=== PATIENT | male | born 1950 | race Caucasian/White ===

== ENCOUNTER 2019-05-25 00:28 | Inpatient (IN) | payer MEDICARE, MEDICAID ==
[~2019-05-25] VITALS: Ht 165.1 cm; Wt 78.0 kg
[~2019-05-25 00:28] MED LIST: ACET-2853 PO; ATOR40TA70 PO; DEXA4TAB PO; DIPH25CA83 PO; ELEQUIS PO; EPIN0.3A3 IM; GABA-531 PO; HYDR25TA PO
[2019-05-25] MEDS ORDERED: SODIUM CHLORIDE 0.9% 1000ML BAG (SEPSIS BOLUS) IV ONE (02:00)
[2019-05-25 02:29] LABS: BASOPHILS % 0.3 % (0.0-2.0); EOSINOPHILS % 0.2 % (0.0-5.0); HEMATOCRIT. 29.1 % (42.0-52.0); HEMOGLOBIN. 10.1 g/dL (14.0-18.0); LYMPHOCYTES % 22.1 % (20.0-50.0); MEAN CORPUSCULAR HEMOGLOBIN 31.6 pg (28.0-32.0); MEAN CORPUSCULAR VOLUME 90.7 fL (80.0-94.0); MEAN PLATELET VOLUME 6.6 fl (7.4-10.4); MONOCYTES % 14.2 % (2.0-8.0); NEUTROPHILS % 63.2 % (40.0-76.0); PLATELET 336 x1000/uL (130-400); RED BLOOD CELL COUNT 3.21 mill/uL (4.7-6.1); RED CELL DISTRIBUTION WIDTH 17.1 % (11.6-14.6)
[2019-05-25 02:30] LABS: CHLORIDE 99 mEq/L (98-107)
[2019-05-25 02:31] LABS: INR 1.2; PROTHROMBIN TIME 12.2 sec (9.6-11.0)
[2019-05-25 02:34] LABS: ETHANOL BLOOD < 10 mg/dL
[2019-05-25 02:51] LABS: CLARITY URINE CLEAR (CLEAR); COLOR URINE YELLOW (YELLOW); KETONES URINE TRACE (NEGATIVE); LEUKOCYTE ESTERASE URINE TRACE (NEGATIVE); NITRITE URINE NEGATIVE (NEGATIVE); OCCULT BLOOD URINE 1+ (NEGATIVE); PH URINE 5.5 (4.5-8.0); PROTEIN URINE 2+ (NEGATIVE); SPECIFIC GRAVITY URINE 1.022 (1.005-1.030)
[2019-05-25] MEDS ORDERED: CEFTRIAXONE 1 G PREMIX 50 ML IV SCH (03:45)
[2019-05-25 04:04] LABS: *AMPHETAMINES SCREEN URINE NEGATIVE (NEGATIVE); *BARBITURATES SCREEN URINE NEGATIVE (NEGATIVE); *BENZODIAZEPINES SCREEN URINE NEGATIVE (NEGATIVE); *COCAINE SCREEN URINE NEGATIVE (NEGATIVE)
[2019-05-25 04:05] LABS: CANNABINOID URINE SCREEN NEGATIVE (NEGATIVE); METHADONE URINE SCREEN NEGATIVE (NEGATIVE); OPIATES URINE SCREEN NEGATIVE (NEGATIVE); PHENCYCLIDINE URINE SCREEN NEGATIVE (NEGATIVE)
[2019-05-25] MEDS ORDERED: AMIODARONE HCL 900 MG in DEXT 5% WATER 482 ML IV SCH ×2 (04:30→05:00)
[2019-05-25] MEDS ORDERED: AMIODARONE HCL 150 MG in DEXT 5% WATER 100 ML IV ONE (04:30)
[2019-05-25] MEDS ORDERED: CLONIDINE 0.1MG TABLET PO PRN (15:00)
[2019-05-25] MEDS ORDERED: GUAIFENESIN 200MG/10ML SUGAR FREE UDC PO PRN (15:00)
[2019-05-25] MEDS ORDERED: DIPHENHYDRAMINE 50MG/ML VIAL IV PRN (15:00)
[2019-05-25] MEDS ORDERED: ONDANSETRON HCL 4MG/2ML INJ IV PRN (15:00)
[2019-05-25] MEDS ORDERED: IPRATROPIUM/ALBUTEROL 0.5-3(2.5)MG/3ML NEB HHN PRN ×2 (15:00→20:15)
[2019-05-25] MEDS ORDERED: MAGNESIUM/ALUMINUM HYDROXIDE/SIMETHICONE 30ML UDC PO PRN (15:00)
[2019-05-25 15:12] VITALS: BP 150/94
[2019-05-25] MEDS: SODIUM CHLORIDE 0.9% 1,000 ML IV SCH ×2 (15:56→21:28)
[2019-05-25] MEDS: FAMOTIDINE 20MG/2ML VIAL IV SCH (15:56)
[2019-05-25] MEDS: ENOXAPARIN 40MG/0.4ML SYR SUBCUT SCH (15:57)
[2019-05-25] MEDS ORDERED: KCL 20MEQ/100ML PREMIX 100 ML IV SCH (16:30)
[2019-05-25] MEDS: CALCITONIN,SALMON, 3.7 ML NASAL SPRAY ONENSTRL SCH (17:18)
[2019-05-25 18:57] VITALS: BP 142/85
[2019-05-25 20:25] VITALS: BP 137/80
[2019-05-25] MEDS ORDERED: FUROSEMIDE 40MG/4ML VIAL IVP NR (20:30)
[2019-05-25] MEDS ORDERED: MAGNESIUM 1 G PREMIX 100 ML IV NR (22:00)
[2019-05-26] VITALS: BP 118/70
[2019-05-26] MEDS: IPRATROPIUM/ALBUTEROL 0.5-3(2.5)MG/3ML NEB HHN SCH ×4 (00:28→21:40)
[2019-05-26] MEDS: BUDESONIDE 0.5MG/2ML NEB HHN SCH ×3 (00:29→21:40)
[2019-05-26] MEDS: SODIUM CHLORIDE 0.9% 1,000 ML IV SCH ×2 (02:56→09:40)
[2019-05-26 04:00] VITALS: BP 109/64
[2019-05-26 07:56] LABS: HEMATOCRIT. 23.5 % (42.0-52.0); MEAN CORPUSCULAR HEMOGLOBIN 31.1 pg (28.0-32.0); MEAN CORPUSCULAR VOLUME 91.6 fL (80.0-94.0); MEAN PLATELET VOLUME 6.8 fl (7.4-10.4); PLATELET 275 x1000/uL (130-400); RED BLOOD CELL COUNT 2.57 mill/uL (4.7-6.1); RED CELL DISTRIBUTION WIDTH 16.8 % (11.6-14.6)
[2019-05-26 08:44] LABS: CHLORIDE 104 mEq/L (98-107)
[2019-05-26 08:52] LABS: PHOSPHORUS 3.4 mg/dL (2.5-4.9)
[2019-05-26] MEDS: FAMOTIDINE 20MG/2ML VIAL IV SCH (08:52)
[2019-05-26] MEDS: CALCITONIN,SALMON, 3.7 ML NASAL SPRAY ONENSTRL SCH (08:56)
[2019-05-26 12:00] VITALS: BP 147/90
[2019-05-26] MEDS ORDERED: POTASSIUM CHLORIDE INJ 40 MEQ in DEXT 5% WATER 250 ML IV NR (13:30)
[2019-05-26 14:17] LABS: PLATELET ESTIMATE NORMAL
[2019-05-26] MEDS ORDERED: PAMIDRONATE DISODIUM 60 MG in SODIUM CHLORIDE 0.9% 500 ML IV ONE (15:00)
[2019-05-26] MEDS: ENOXAPARIN 40MG/0.4ML SYR SUBCUT SCH (15:03)
[2019-05-26 16:00] VITALS: BP 138/70
[2019-05-26 20:00] VITALS: BP 156/86
[2019-05-27] VITALS: BP 139/81
[2019-05-27] MEDS: SODIUM CHLORIDE 0.9% 1,000 ML IV SCH (00:39)
[2019-05-27] MEDS: IPRATROPIUM/ALBUTEROL 0.5-3(2.5)MG/3ML NEB HHN SCH ×4 (01:14→21:02)
[2019-05-27 06:56] LABS: BASOPHILS % 0.4 % (0.0-2.0); EOSINOPHILS % 0.8 % (0.0-5.0); HEMATOCRIT. 23.2 % (42.0-52.0); HEMOGLOBIN. 7.8 g/dL (14.0-18.0); LYMPHOCYTES % 22.8 % (20.0-50.0); MEAN CORPUSCULAR HEMOGLOBIN 30.6 pg (28.0-32.0); MEAN CORPUSCULAR VOLUME 91.4 fL (80.0-94.0); MEAN PLATELET VOLUME 6.6 fl (7.4-10.4); MONOCYTES % 11.8 % (2.0-8.0); NEUTROPHILS % 64.2 % (40.0-76.0); PLATELET 243 x1000/uL (130-400); RED BLOOD CELL COUNT 2.54 mill/uL (4.7-6.1); RED CELL DISTRIBUTION WIDTH 16.7 % (11.6-14.6)
[2019-05-27 08:00] VITALS: BP 154/77
[2019-05-27 08:24] LABS: CHLORIDE 108 mEq/L (98-107)
[2019-05-27 08:38] LABS: PHOSPHORUS 2.8 mg/dL (2.5-4.9)
[2019-05-27] MEDS: BUDESONIDE 0.5MG/2ML NEB HHN SCH ×2 (08:59→21:00)
[2019-05-27] MEDS ORDERED: POTASSIUM CHLORIDE 20MEQ TABLET SR PO NR (10:00)
[2019-05-27] MEDS: FAMOTIDINE 20MG/2ML VIAL IV SCH (10:36)
[2019-05-27] MEDS: CALCITONIN,SALMON, 3.7 ML NASAL SPRAY ONENSTRL SCH (10:36)
[2019-05-27] MEDS ORDERED: POTASSIUM CHLORIDE INJ 40 MEQ in DEXT 5% WATER 250 ML IV NR (11:00)
[2019-05-27 12:00] VITALS: BP 126/94
[2019-05-27 16:00] VITALS: BP 138/77
[2019-05-27] MEDS ORDERED: MAGNESIUM 2 G PREMIX 50 ML IV NR (16:30)
[2019-05-27] MEDS: ENOXAPARIN 40MG/0.4ML SYR SUBCUT SCH (18:08)
[2019-05-27 20:00] VITALS: BP 136/82
[2019-05-28] VITALS (10 sets, daily range): BP systolic 112–157; BP diastolic 60–84
[2019-05-28] MEDS: IPRATROPIUM/ALBUTEROL 0.5-3(2.5)MG/3ML NEB HHN SCH ×4 (01:26→21:49)
[2019-05-28] MEDS: BUDESONIDE 0.5MG/2ML NEB HHN SCH ×3 (01:26→21:49)
[2019-05-28] MEDS: SODIUM CHLORIDE 0.9% 1,000 ML IV SCH ×3 (02:16→23:12)
[2019-05-28] MEDS: FAMOTIDINE 20MG/2ML VIAL IV SCH (08:49)
[2019-05-28] MEDS: CALCITONIN,SALMON, 3.7 ML NASAL SPRAY ONENSTRL SCH (08:49)
[2019-05-28 09:03] LABS: CHLORIDE 112 mEq/L (98-107)
[2019-05-28 09:10] LABS: BASOPHILS % 0.5 % (0.0-2.0); EOSINOPHILS % 0.4 % (0.0-5.0); LYMPHOCYTES % 20.9 % (20.0-50.0); MEAN CORPUSCULAR HEMOGLOBIN 30.6 pg (28.0-32.0); MEAN CORPUSCULAR VOLUME 92.2 fL (80.0-94.0); MEAN PLATELET VOLUME 6.2 fl (7.4-10.4); MONOCYTES % 10.3 % (2.0-8.0); NEUTROPHILS % 67.9 % (40.0-76.0); PLATELET 197 x1000/uL (130-400); RED BLOOD CELL COUNT 2.23 mill/uL (4.7-6.1); RED CELL DISTRIBUTION WIDTH 16.7 % (11.6-14.6)
[2019-05-28 09:11] LABS: PHOSPHORUS 1.7 mg/dL (2.5-4.9)
[2019-05-28 09:24] LABS: HEMATOCRIT. 20.5 % (42.0-52.0); HEMOGLOBIN. 6.8 g/dL (14.0-18.0)
[2019-05-28] MEDS ORDERED: MAGNESIUM 4 G PREMIX 100 ML IV SCH (11:00)
[2019-05-28] MEDS ORDERED: POTASSIUM CHLORIDE 20MEQ TABLET SR PO NR (12:00)
[2019-05-28] MEDS ORDERED: POTASSIUM PHOS,M-BASIC-D-BASIC 30 MMOL in DEXT 5% WATER 500 ML IV SCH (12:00)
[2019-05-28] MEDS ORDERED: POTASSIUM CHLORIDE INJ 40 MEQ in DEXT 5% WATER 500 ML IV SCH (12:00)
[2019-05-28] MEDS: ENOXAPARIN 40MG/0.4ML SYR SUBCUT SCH (16:00)
[2019-05-28] MEDS: ACETAMINOPHEN 325MG TABLET PO PRN (17:05)
[2019-05-29] VITALS: BP 109/51
[2019-05-29] MEDS: IPRATROPIUM/ALBUTEROL 0.5-3(2.5)MG/3ML NEB HHN SCH ×4 (01:41→21:16)
[2019-05-29 04:00] VITALS: BP 129/63
[2019-05-29] MEDS: SODIUM CHLORIDE 0.9% 1,000 ML IV SCH (06:03)
[2019-05-29 07:07] LABS: BASOPHILS % 0.2 % (0.0-2.0); EOSINOPHILS % 0.8 % (0.0-5.0); HEMATOCRIT. 25.7 % (42.0-52.0); HEMOGLOBIN. 8.8 g/dL (14.0-18.0); LYMPHOCYTES % 15.4 % (20.0-50.0); MEAN CORPUSCULAR HEMOGLOBIN 30.1 pg (28.0-32.0); MEAN CORPUSCULAR VOLUME 87.7 fL (80.0-94.0); MEAN PLATELET VOLUME 6.5 fl (7.4-10.4); MONOCYTES % 10.7 % (2.0-8.0); NEUTROPHILS % 72.9 % (40.0-76.0); PLATELET 206 x1000/uL (130-400); RED BLOOD CELL COUNT 2.93 mill/uL (4.7-6.1); RED CELL DISTRIBUTION WIDTH 17.5 % (11.6-14.6)
[2019-05-29 07:20] LABS: CHLORIDE 104 mEq/L (98-107)
[2019-05-29 07:39] LABS: PHOSPHORUS 2.8 mg/dL (2.5-4.9)
[2019-05-29 08:00] VITALS: BP 145/80
[2019-05-29] MEDS: FAMOTIDINE 20MG/2ML VIAL IV SCH (08:10)
[2019-05-29] MEDS: CALCITONIN,SALMON, 3.7 ML NASAL SPRAY ONENSTRL SCH (08:10)
[2019-05-29 12:00] VITALS: BP 128/79
[2019-05-29 16:00] VITALS: BP 124/78
[2019-05-29] MEDS: ENOXAPARIN 40MG/0.4ML SYR SUBCUT SCH (17:12)
[2019-05-29 20:00] VITALS: BP 107/60
[2019-05-30] VITALS: BP 109/70
[2019-05-30] MEDS: IPRATROPIUM/ALBUTEROL 0.5-3(2.5)MG/3ML NEB HHN SCH ×4 (02:09→21:05)
[2019-05-30 04:00] VITALS: BP 132/76
[2019-05-30] MEDS: CALCITONIN,SALMON, 3.7 ML NASAL SPRAY ONENSTRL SCH (07:45)
[2019-05-30 07:58] LABS: BASOPHILS % 0.4 % (0.0-2.0); EOSINOPHILS % 0.8 % (0.0-5.0); HEMATOCRIT. 23.9 % (42.0-52.0); HEMOGLOBIN. 8.3 g/dL (14.0-18.0); LYMPHOCYTES % 22.3 % (20.0-50.0); MEAN CORPUSCULAR HEMOGLOBIN 30.2 pg (28.0-32.0); MEAN CORPUSCULAR VOLUME 87.2 fL (80.0-94.0); MEAN PLATELET VOLUME 6.5 fl (7.4-10.4); MONOCYTES % 10.8 % (2.0-8.0); NEUTROPHILS % 65.7 % (40.0-76.0); PLATELET 197 x1000/uL (130-400); RED BLOOD CELL COUNT 2.75 mill/uL (4.7-6.1); RED CELL DISTRIBUTION WIDTH 17.7 % (11.6-14.6)
[2019-05-30 08:17] LABS: CHLORIDE 103 mEq/L (98-107)
[2019-05-30 08:28] LABS: PHOSPHORUS 2.6 mg/dL (2.5-4.9)
[2019-05-30] MEDS ORDERED: POTASSIUM CHLORIDE 20MEQ/PACKET PO NR (11:30)
[2019-05-30] MEDS ORDERED: MAGNESIUM 2 G PREMIX 50 ML IV NR (11:30)
[2019-05-30 12:00] VITALS: BP 122/70
[2019-05-30] MEDS ORDERED: GUAIFENESIN 200MG/10ML SUGAR FREE UDC PO PRN (12:45)
[2019-05-30] MEDS ORDERED: FUROSEMIDE 20MG/2ML VIAL IVP NR (15:30)
[2019-05-30 16:00] VITALS: BP 119/71
[2019-05-30] MEDS: ENOXAPARIN 40MG/0.4ML SYR SUBCUT SCH (16:20)
[2019-05-30] MEDS ORDERED: IPRATROPIUM/ALBUTEROL 0.5-3(2.5)MG/3ML NEB HHN SCH (18:00)
[2019-05-30 20:00] VITALS: BP 133/80
[2019-05-31] VITALS: BP 135/79
[2019-05-31] MEDS: IPRATROPIUM/ALBUTEROL 0.5-3(2.5)MG/3ML NEB HHN SCH ×4 (00:36→21:05)
[2019-05-31 04:00] VITALS: BP 122/72
[2019-05-31 08:00] VITALS: BP 135/80
[2019-05-31] MEDS: CALCITONIN,SALMON, 3.7 ML NASAL SPRAY ONENSTRL SCH (09:59)
[2019-05-31 12:00] VITALS: BP 129/78
[2019-05-31] MEDS ORDERED: POTASSIUM CHLORIDE 20MEQ/PACKET PO SCH (12:45)
[2019-05-31] MEDS ORDERED: MAGNESIUM 2 G PREMIX 50 ML IV SCH (13:30)
[2019-05-31] MEDS: ENOXAPARIN 40MG/0.4ML SYR SUBCUT SCH (15:21)
[2019-05-31 16:00] VITALS: BP 121/77
[2019-05-31 20:00] VITALS: BP 124/76
[2019-05-31] MEDS: ACETAMINOPHEN 325MG TABLET PO PRN (23:40)
[2019-06-01] VITALS: BP 141/72
[2019-06-01 04:00] VITALS: BP 119/77
[2019-06-01] MEDS: IPRATROPIUM/ALBUTEROL 0.5-3(2.5)MG/3ML NEB HHN SCH ×3 (04:09→14:17)
[2019-06-01 07:02] LABS: BASOPHILS % 0.5 % (0.0-2.0); EOSINOPHILS % 0.9 % (0.0-5.0); HEMATOCRIT. 24.8 % (42.0-52.0); HEMOGLOBIN. 8.4 g/dL (14.0-18.0); LYMPHOCYTES % 28.5 % (20.0-50.0); MEAN CORPUSCULAR HEMOGLOBIN 29.9 pg (28.0-32.0); MEAN CORPUSCULAR VOLUME 87.9 fL (80.0-94.0); MEAN PLATELET VOLUME 6.6 fl (7.4-10.4); MONOCYTES % 12.8 % (2.0-8.0); NEUTROPHILS % 57.3 % (40.0-76.0); PLATELET 227 x1000/uL (130-400); RED BLOOD CELL COUNT 2.83 mill/uL (4.7-6.1); RED CELL DISTRIBUTION WIDTH 17.3 % (11.6-14.6)
[2019-06-01 07:43] LABS: CHLORIDE 103 mEq/L (98-107)
[2019-06-01 07:56] LABS: PHOSPHORUS 2.7 mg/dL (2.5-4.9)
[2019-06-01 08:00] VITALS: BP 138/79
[2019-06-01] MEDS: CALCITONIN,SALMON, 3.7 ML NASAL SPRAY ONENSTRL SCH (09:39)
[2019-06-01 12:00] VITALS: BP 129/83
[2019-06-01 14:39] LABS: CLARITY URINE CLEAR (CLEAR); COLOR URINE YELLOW (YELLOW); KETONES URINE NEGATIVE (NEGATIVE); LEUKOCYTE ESTERASE URINE NEGATIVE (NEGATIVE); NITRITE URINE NEGATIVE (NEGATIVE); OCCULT BLOOD URINE TRACE (NEGATIVE); PH URINE 7.5 (4.5-8.0); PROTEIN URINE 1+ (NEGATIVE); SPECIFIC GRAVITY URINE 1.011 (1.005-1.030); UROBILINOGEN URINE 0.2 E.U./dL (0.2-1.0)
[2019-06-01 16:00] VITALS: BP 125/74
[2019-06-01] MEDS: ENOXAPARIN 40MG/0.4ML SYR SUBCUT SCH (16:02)
[2019-06-01 20:00] VITALS: BP 140/76
[2019-06-01] MEDS: ACETAMINOPHEN 325MG TABLET PO PRN (20:36)
[2019-06-02] VITALS: BP 131/69
[2019-06-02 04:00] VITALS: BP 136/82
[2019-06-02 07:00] LABS: BASOPHILS % 0.6 % (0.0-2.0); EOSINOPHILS % 0.9 % (0.0-5.0); HEMATOCRIT. 25.1 % (42.0-52.0); HEMOGLOBIN. 8.5 g/dL (14.0-18.0); LYMPHOCYTES % 22.5 % (20.0-50.0); MEAN CORPUSCULAR HEMOGLOBIN 30.1 pg (28.0-32.0); MEAN CORPUSCULAR VOLUME 88.9 fL (80.0-94.0); MEAN PLATELET VOLUME 6.6 fl (7.4-10.4); MONOCYTES % 10.6 % (2.0-8.0); NEUTROPHILS % 65.4 % (40.0-76.0); PLATELET 235 x1000/uL (130-400); RED BLOOD CELL COUNT 2.82 mill/uL (4.7-6.1); RED CELL DISTRIBUTION WIDTH 17.4 % (11.6-14.6)
[2019-06-02 07:22] LABS: CHLORIDE 103 mEq/L (98-107)
[2019-06-02 07:36] LABS: PHOSPHORUS 2.3 mg/dL (2.5-4.9)
[2019-06-02 08:00] VITALS: BP 130/80
[2019-06-02] MEDS: CALCITONIN,SALMON, 3.7 ML NASAL SPRAY ONENSTRL SCH (09:05)
[2019-06-02 12:00] VITALS: BP 127/79
[2019-06-02] MEDS ORDERED: SODIUM PHOS,M-BASIC-D-BASIC 15 MM in DEXT 5% WATER 245 ML IV NR (15:30)
[2019-06-02 16:00] VITALS: BP 121/70
[2019-06-02] MEDS: IBUPROFEN 400MG TABLET PO PRN (18:17)
[2019-06-02 20:00] VITALS: BP 118/75
[2019-06-03] VITALS (7 sets, daily range): BP systolic 103–134; BP diastolic 59–83
[2019-06-03] MEDS: IPRATROPIUM/ALBUTEROL 0.5-3(2.5)MG/3ML NEB HHN SCH ×3 (00:53→20:28)
[2019-06-03] MEDS: IBUPROFEN 400MG TABLET PO PRN (04:33)
[2019-06-03 07:25] LABS: CHLORIDE 102 mEq/L (98-107)
[2019-06-03 07:38] LABS: PHOSPHORUS 2.5 mg/dL (2.5-4.9)
[2019-06-03] MEDS: CALCITONIN,SALMON, 3.7 ML NASAL SPRAY ONENSTRL SCH (09:00)
[2019-06-03 09:36] LABS: BASOPHILS % 0.4 % (0.0-2.0); EOSINOPHILS % 0.2 % (0.0-5.0); HEMATOCRIT. 27.2 % (42.0-52.0); HEMOGLOBIN. 9.1 g/dL (14.0-18.0); LYMPHOCYTES % 20.1 % (20.0-50.0); MEAN CORPUSCULAR VOLUME 89.8 fL (80.0-94.0); MONOCYTES % 12.2 % (2.0-8.0); NEUTROPHILS % 67.1 % (40.0-76.0); PLATELET 206 x1000/uL (130-400); RED BLOOD CELL COUNT 3.03 mill/uL (4.7-6.1); RED CELL DISTRIBUTION WIDTH 17.4 % (11.6-14.6)
[2019-06-03] MEDS: ACETAMINOPHEN 325MG TABLET PO PRN (12:02)
[2019-06-03] MEDS ORDERED: CEFTRIAXONE 1 G PREMIX 50 ML IV SCH (14:30)
[2019-06-03] MEDS: SODIUM CHLORIDE 0.9% 1,000 ML IV SCH (14:41)
[2019-06-03] MEDS ORDERED: CEFTRIAXONE 1,000 MG in DEXTROSE 5% WATER 50 ML IV SCH (17:00)
[2019-06-04] VITALS: BP 130/79
[2019-06-04] MEDS: IPRATROPIUM/ALBUTEROL 0.5-3(2.5)MG/3ML NEB HHN SCH ×4 (01:53→20:05)
[2019-06-04 04:00] VITALS: BP 111/73
[2019-06-04] MEDS: SODIUM CHLORIDE 0.9% 1,000 ML IV SCH (05:52)
[2019-06-04 07:13] LABS: HEMATOCRIT. 23.6 % (42.0-52.0); HEMOGLOBIN. 8.1 g/dL (14.0-18.0); MEAN CORPUSCULAR HEMOGLOBIN 30.3 pg (28.0-32.0); MEAN PLATELET VOLUME 6.9 fl (7.4-10.4); PLATELET 230 x1000/uL (130-400); RED BLOOD CELL COUNT 2.68 mill/uL (4.7-6.1); RED CELL DISTRIBUTION WIDTH 17.2 % (11.6-14.6)
[2019-06-04 08:00] VITALS: BP 126/78
[2019-06-04 08:37] LABS: CHLORIDE 104 mEq/L (98-107)
[2019-06-04 08:42] LABS: PHOSPHORUS 1.8 mg/dL (2.5-4.9)
[2019-06-04 08:46] LABS: CREATINE KINASE 32 IU/L (39-308)
[2019-06-04] MEDS: CALCITONIN,SALMON, 3.7 ML NASAL SPRAY ONENSTRL SCH (09:00)
[2019-06-04] MEDS ORDERED: IOHEXOL-300 100 ML BOTTLE ONE (11:18)
[2019-06-04 12:00] VITALS: BP 123/71
[2019-06-04] MEDS ORDERED: POTASSIUM CHLORIDE 20MEQ/PACKET PO SCH (12:30)
[2019-06-04] MEDS ORDERED: MAGNESIUM 2 G PREMIX 50 ML IV SCH (13:00)
[2019-06-04] MEDS ORDERED: POTASSIUM PHOS,M-BASIC-D-BASIC 30 MMOL in DEXT 5% WATER 500 ML IV SCH (13:00)
[2019-06-04] MEDS: CLOTRIMAZOLE 10MG TROCHE MM SCH ×3 (13:54→21:51)
[2019-06-04] MEDS: AMOXICILLIN 500 MG CAPSULE PO SCH ×2 (13:54→21:51)
[2019-06-04 14:14] VITALS: BP_SYST 123; BP_SYST 132; BP_DIAS 71; BP_DIAS 72
[2019-06-04] MEDS: ACETAMINOPHEN 325MG TABLET PO PRN (14:45)
[2019-06-04] MEDS: METRONIDAZOLE 500MG TABLET PO SCH ×2 (15:20→21:51)
[2019-06-04 16:39] VITALS: BP 109/69
[2019-06-04 16:54] LABS: PLATELET ESTIMATE NORMAL
[2019-06-05 00:04] VITALS: BP 118/73
== END 2019-06-05 00:30 | DRG 70 ==
LOC: ER 00:28 → 8WST 04:18 → EDBEDREQSVC 04:21 → EDBEDREQ 04:21 → EDBEDREQTM 04:21 → ENRESERV 12:45 → EDBEDREQ 13:40
PROVIDERS: ADMIT Internal Medicine; ATTEND Internal Medicine
PROC: 5A09357 Assistance with Respiratory Ventilation, Less than 24 Consecutive Hours, Continuous Positive Airway Pressure (ICD-10-PCS; 2019-05-25)
PROC: 30233N1 Transfusion of Nonautologous Red Blood Cells into Peripheral Vein, Percutaneous Approach (ICD-10-PCS; principal; 2019-05-28)
DX: G93.41 Metabolic encephalopathy (principal); E43 Unspecified severe protein-calorie malnutrition; N17.9 Acute kidney failure, unspecified; N39.0 Urinary tract infection, site not specified; C90.00 Multiple myeloma not having achieved remission; J84.9 Interstitial pulmonary disease, unspecified; E87.1 Hypo-osmolality and hyponatremia; B37.0 Candidal stomatitis; E83.52 Hypercalcemia; E86.0 Dehydration; D64.9 Anemia, unspecified; I10 Essential (primary) hypertension; I71.9 Aortic aneurysm of unspecified site, without rupture; J44.9 Chronic obstructive pulmonary disease, unspecified; E87.6 Hypokalemia; M43.23 Fusion of spine, cervicothoracic region; F41.9 Anxiety disorder, unspecified; E87.5 Hyperkalemia; E78.5 Hyperlipidemia, unspecified; I48.91 Unspecified atrial fibrillation; M19.90 Unspecified osteoarthritis, unspecified site; B95.2 Enterococcus as the cause of diseases classified elsewhere; E83.42 Hypomagnesemia; E83.39 Other disorders of phosphorus metabolism; Z98.1 Arthrodesis status; Z82.49 Family history of ischemic heart disease and other diseases of the circulatory system; Z91.19 Patient's noncompliance with other medical treatment and regimen; Z68.28 Body mass index [BMI] 28.0-28.9, adult; Z88.8 Allergy status to other drugs, medicaments and biological substances; Z79.899 Other long term (current) drug therapy
CPT/HCPCS: 36415; 71045; 74177; 80048; 80305; 80320; 81003; 82330; 82533; 82550; 82962; 83605; 83615; 83735; 83880; 84100; 84145; 84443; 84484; 84550; 86850; 86900; 86920; 87077; 87186; 87804; 93005; 93970; 94640; 94660; 97162; 97166; 99285; J0282; J0696; J1650; J1940; J2430; J3475; J3480; J3490; J7030; J7040; J7060; J7620; J7626; P9016; Q9967; G0480

== ENCOUNTER 2019-07-12 01:31 | Inpatient (IN) | payer MEDICARE, MEDICAID ==
[~2019-07-12] VITALS: Ht 170.2 cm; Wt 64.9 kg
[2019-07-12] VITALS (55 sets, daily range): BP systolic 88–133; BP diastolic 57–79
[2019-07-12] MEDS: IPRATROPIUM/ALBUTEROL 0.5-3(2.5)MG/3ML NEB HHN SCH ×3 (01:18→20:17)
[2019-07-12] MEDS: ACETYLCYSTEINE 100MG/ML 10% VIAL 4ML INH SCH (01:18)
[2019-07-12] MEDS ORDERED: MORPHINE SULFATE 4 MG/ML CPJ (NOT FOR IM USE) IV ONE (01:45)
[2019-07-12] MEDS ORDERED: LORAZEPAM 2MG/ML CPJ IV ONE ×2 (01:45→03:45)
[2019-07-12] MEDS ORDERED: ONDANSETRON HCL 4MG/2ML INJ IV ONE (01:45)
[2019-07-12 01:58] LABS: CHLORIDE 100 mEq/L (98-107)
[2019-07-12] MEDS ORDERED: NOREPINEPHRINE 4 MG in DEXT 5% WATER 246 ML IV ONE (02:00)
[2019-07-12] MEDS ORDERED: MIDAZOLAM HCL 50 MG in DEXTROSE 5% WATER 40 ML IV ONE ×2 (02:00→02:15)
[2019-07-12] MEDS ORDERED: SODIUM CHLORIDE 0.9% 1000ML BAG (SEPSIS BOLUS) IV ONE (02:00)
[2019-07-12] MEDS ORDERED: FENTANYL CITRATE/PF 500 MCG in SODIUM CHLORIDE 0.9% 40 ML IV PRN ×2 (02:00→02:15)
[2019-07-12] MEDS ORDERED: LORAZEPAM 2MG/ML CPJ ONE (02:14)
[2019-07-12] MEDS ORDERED: NOREPINEPHRINE 4MG/250ML PMX 250 ML IV PRN (02:15)
[2019-07-12 03:38] LABS: BG FRACTION INSPIRED OXYGEN 100; BG HCO3 ACT 18.8 mmol/L (22.0-26.0); BG PCO2 27.2 mmHg (35.0-45.0); BG PH 7.457 (7.350-7.450); BG PO2 353.4 mmHg (75.0-100.0); BG SAMPLE SITE RIGHT BRACHIAL; BG TOTAL HEMOGLOBIN < 4.5 g/dL (12.0-18.0); BG VENT MODE MASK - BIPAP
[2019-07-12 03:57] LABS: BASOPHILS % 0.2 % (0.0-2.0); LYMPHOCYTES % 14.8 % (20.0-50.0); MEAN CORPUSCULAR HEMOGLOBIN 29.4 pg (28.0-32.0); MEAN CORPUSCULAR VOLUME 88.1 fL (80.0-94.0); MEAN PLATELET VOLUME 7.3 fl (7.4-10.4); PLATELET 127 x1000/uL (130-400); RED BLOOD CELL COUNT 1.24 mill/uL (4.7-6.1); RED CELL DISTRIBUTION WIDTH 18.9 % (11.6-14.6)
[2019-07-12 04:00] LABS: HEMATOCRIT. 10.9 % (42.0-52.0); HEMOGLOBIN. 3.6 g/dL (14.0-18.0)
[2019-07-12 04:00] LABS: CLARITY URINE CLOUDY (CLEAR); COLOR URINE DARK YELLOW (YELLOW); KETONES URINE TRACE (NEGATIVE); LEUKOCYTE ESTERASE URINE 1+ (NEGATIVE); NITRITE URINE NEGATIVE (NEGATIVE); OCCULT BLOOD URINE 1+ (NEGATIVE); PH URINE 5.5 (4.5-8.0); PROTEIN URINE 2+ (NEGATIVE); SPECIFIC GRAVITY URINE 1.025 (1.005-1.030)
[2019-07-12] MEDS ORDERED: VANCOMYCIN 1 G PREMIX 200 ML IV SCH (05:30)
[2019-07-12] MEDS ORDERED: PIPERACILLIN/TAZOBACTAM 3.375GM/50ML PREMIX IV ONE (05:30)
[2019-07-12] MEDS ORDERED: PIPERACILLIN/TAZ 3.375G PREMIX 50 ML IV NR (05:45)
[2019-07-12] MEDS ORDERED: IPRATROPIUM/ALBUTEROL 0.5-3(2.5)MG/3ML NEB HHN PRN (11:45)
[2019-07-12 12:19] LABS: HEMOGLOBIN 6.1 g/dL (14.0-18.0)
[2019-07-12 12:20] LABS: HEMATOCRIT 18.2 % (42.0-52.0)
[2019-07-12] MEDS ORDERED: MORPHINE SULFATE 2 MG/ML CPJ (NOT FOR IM USE) IV PRN (12:30)
[2019-07-12] MEDS ORDERED: SODIUM CHLORIDE 10% FOR INH 15ML VIAL NEB INH SCH (13:00)
[2019-07-12] MEDS: PANTOPRAZOLE SODIUM 40 MG/VIAL IV SCH (13:26)
[2019-07-12] MEDS: MEROPENEM 1,000 MG in SODIUM CHLORIDE 0.9% 100 ML IV SCH ×2 (13:26→21:10)
[2019-07-12] MEDS: NOREPINEPHRINE 4 MG in DEXT 5% WATER 246 ML IV PRN (14:33)
[2019-07-12] MEDS: VANCOMYCIN 1 G PREMIX 200 ML IV SCH (19:42)
[2019-07-12 20:30] LABS: HEMATOCRIT 22.7 % (42.0-52.0); HEMOGLOBIN 7.9 g/dL (14.0-18.0)
[2019-07-13] VITALS (93 sets, daily range): BP systolic 42–154; BP diastolic 24–100
[2019-07-13] MEDS: NOREPINEPHRINE 4 MG in DEXT 5% WATER 246 ML IV PRN ×2 (00:01→11:10)
[2019-07-13] MEDS: IPRATROPIUM/ALBUTEROL 0.5-3(2.5)MG/3ML NEB HHN SCH ×6 (01:23→20:21)
[2019-07-13] MEDS: MEROPENEM 1,000 MG in SODIUM CHLORIDE 0.9% 100 ML IV SCH ×3 (05:12→22:00)
[2019-07-13] MEDS: VANCOMYCIN 1 G PREMIX 200 ML IV SCH ×2 (05:12→18:00)
[2019-07-13 05:30] LABS: CHLORIDE 101 mEq/L (98-107)
[2019-07-13 07:39] LABS: BASOPHILS % 0.3 % (0.0-2.0); EOSINOPHILS % 0.7 % (0.0-5.0); LYMPHOCYTES % 10.1 % (20.0-50.0); MEAN CORPUSCULAR VOLUME 84.9 fL (80.0-94.0); MEAN PLATELET VOLUME 7.2 fl (7.4-10.4); MONOCYTES % 5.5 % (2.0-8.0); NEUTROPHILS % 83.4 % (40.0-76.0); PLATELET 87 x1000/uL (130-400); RED BLOOD CELL COUNT 2.22 mill/uL (4.7-6.1); RED CELL DISTRIBUTION WIDTH 17.2 % (11.6-14.6)
[2019-07-13 07:46] LABS: HEMATOCRIT. 18.9 % (42.0-52.0); HEMOGLOBIN. 6.4 g/dL (14.0-18.0)
[2019-07-13] MEDS: PANTOPRAZOLE SODIUM 40 MG/VIAL IV SCH (08:03)
[2019-07-13] MEDS: ACETYLCYSTEINE 100MG/ML 10% VIAL 4ML INH SCH (08:24)
[2019-07-13] MEDS ORDERED: ACETAMINOPHEN 650MG SUPP PR PRN (09:00)
[2019-07-13 18:03] LABS: HEMATOCRIT 21.2 % (42.0-52.0); HEMOGLOBIN 7.4 g/dL (14.0-18.0)
[2019-07-13] MEDS: MORPHINE SULFATE 250 MG in DEXT 5% WATER 240 ML IV PRN (19:48)
[2019-07-14] VITALS: BP 66/39
[2019-07-14] MEDS: IPRATROPIUM/ALBUTEROL 0.5-3(2.5)MG/3ML NEB HHN SCH ×4 (01:10→12:40)
[2019-07-14] MEDS: ACETYLCYSTEINE 100MG/ML 10% VIAL 4ML INH SCH (01:10)
[2019-07-14 04:00] VITALS: BP 75/44
[2019-07-14] MEDS: VANCOMYCIN 1 G PREMIX 200 ML IV SCH (06:00)
[2019-07-14 08:00] VITALS: BP 68/37
[2019-07-14] MEDS: PANTOPRAZOLE SODIUM 40 MG/VIAL IV SCH (09:36)
[2019-07-14 12:00] VITALS: BP 110/94
[2019-07-14 16:00] VITALS: BP 59/33
[2019-07-14 20:00] VITALS: BP 46/20
[2019-07-14] MEDS: MORPHINE SULFATE 250 MG in DEXT 5% WATER 240 ML IV PRN (21:46)
[2019-07-15] VITALS: BP 50/27
[2019-07-15 04:00] VITALS: BP 45/21
[2019-07-15 08:00] VITALS: BP 33/12
[2019-07-15 12:00] VITALS: BP 47/25
[2019-07-15 16:00] VITALS: BP 43/23
[2019-07-15 20:00] VITALS: BP 44/17
== END 2019-07-15 22:19 | disposition expired | DRG 871 ==
LOC: EDBD 01:46 → ER 01:46 → EDUNIT# 01:46 → CVICU 05:40 → EDBEDREQ 05:43 → EDBEDREQTM 05:43 → ENRESERV 06:58 → 6EST 07-13 23:42
PROVIDERS: ADMIT Internal Medicine; ATTEND Internal Medicine
PROC: 30233N1 Transfusion of Nonautologous Red Blood Cells into Peripheral Vein, Percutaneous Approach (ICD-10-PCS; principal; 2019-07-12)
PROC: 5A09457 Assistance with Respiratory Ventilation, 24-96 Consecutive Hours, Continuous Positive Airway Pressure (ICD-10-PCS; 2019-07-12)
PROC: B54BZZA Ultrasonography of Right Lower Extremity Veins, Guidance (ICD-10-PCS; 2019-07-12)
PROC: 06HY33Z Insertion of Infusion Device into Lower Vein, Percutaneous Approach (ICD-10-PCS; 2019-07-12)
DX: A41.9 Sepsis, unspecified organism (principal); J96.00 Acute respiratory failure, unspecified whether with hypoxia or hypercapnia; J18.9 Pneumonia, unspecified organism; E43 Unspecified severe protein-calorie malnutrition; G93.41 Metabolic encephalopathy; C90.00 Multiple myeloma not having achieved remission; E87.1 Hypo-osmolality and hyponatremia; E87.3 Alkalosis; R57.9 Shock, unspecified; I11.9 Hypertensive heart disease without heart failure; D64.9 Anemia, unspecified; N28.1 Cyst of kidney, acquired; Z51.5 Encounter for palliative care; Z66 Do not resuscitate; G62.9 Polyneuropathy, unspecified; M19.90 Unspecified osteoarthritis, unspecified site; Z98.1 Arthrodesis status; Z68.22 Body mass index [BMI] 22.0-22.9, adult; Z88.6 Allergy status to analgesic agent; Z79.899 Other long term (current) drug therapy
CPT/HCPCS: 36415; 36600; 71045; 74176; 80048; 80202; 81003; 82375; 83605; 83880; 84484; 85014; 85018; 86850; 86900; 86920; 87070; 93005; 94640; 94660; 99291; C9113; G0378; J2060; J2185; J2250; J2270; J2274; J2405; J2543; J3010; J3370; J3490; J7030; J7040; J7050; J7060; J7131; J7608; J7620; P9016; A4315